=== PATIENT | male | born 1995 | race Caucasian/White ===

== ENCOUNTER 2016-11-01 03:16 | Emergency (ER) | payer OTHER ==
[2016-11-01 03:20] VITALS: BP 132/64
[2016-11-01] MEDS ORDERED: Ondansetron 4 MG/2 ML SDV IVPUSH ONE (03:31)
[2016-11-01] MEDS ORDERED: Sodium Chloride 0.9% 10 ML Syringe FLUSH PRN (03:32)
[2016-11-01] MEDS ORDERED: Sodium Chloride 0.9% 1,000 ML IV ONE (03:32)
--- NOTE | 2016-11-01 03:55 | EDM.PDOC ---
ED HPI GENERAL MEDICAL PROBLEM - General Chief Complaint: General Stated Complaint: N/V, [place] stools Time Seen by Provider: 11/01/16 03:46 Source of Information: Reports: Patient, Family History Limitations: Reports: No limitations - History of Present Illness INITIAL COMMENTS - FREE TEXT/NARRATIVE: Has 24 hours of watery diarrhea and N/V x 4, low grade fever, mild aches. No cough or other c/o. Poor intake. Onset: sudden Duration: Day(s): (1) Location: Reports: other (No dominant pain) Severity: mild Improves with: Reports: None Worsens with: Reports: None Associated Symptoms: Reports: chest pain (mild with deep breaths), fever/chills (subjective fevers. No significant chills), nausea/vomiting (times 4). Denies : cough, headaches, rash, shortness of breath Treatments KNOWLEDGE MANAGER: Reports: Other medication(s), Other (see below) (Pepto) Other Treatments KNOWLEDGE MANAGER: Pepto bismol Thoracic Pain Score (Numeric/FACES): 4 - Related Data Allergies Allergy/AdvReac Type Severity Reaction Status Date / Time No Known Allergies Allergy Verified 11/01/16 03:33 Home Meds: Home Meds Bismuth Subsalicylate [Pepto Bismol] 10 ml PO ASDIRECTED PRN 11/01/16 [History] ED ROS GENERAL - Review of Systems Review Of Systems: See Below Constitutional: Reports: fever, fatigue. Denies: chills, diaphoresis HEENT: Reports: No symptoms Respiratory: Reports: No Symptoms Cardiovascular: Reports: No symptoms Endocrine: Reports: no symptoms GI/Abdominal: Reports: Diarrhea (times 20), Decreased appetite, Nausea, Vomiting : Reports: other (only urinated twice in 24 hours) Musculoskeletal: Denies: other (genrealized aches (mild)) Skin: Reports: no symptoms Neurological: Reports: No Symptoms Psychiatric: Reports: No symptoms Hematologic/Lymphatic: Reports: no symptoms Immunologic: Reports: no symptoms ED EXAM, GENERAL - Physical Exam Exam: See Below Exam Limited By: No limitations General Appearance: alert, WD/WN, no apparent distress Eye Exam: bilateral eye: EOMI, PERRL Nose: normal inspection, normal mucosa, no blood Throat/Mouth: Normal inspection, Normal oropharynx, Normal voice, No airway compromise Head: atraumatic, normocephalic Neck: normal inspection, supple, non-tender, full range of motion Respiratory/Chest: no respiratory distress, lungs clear, normal breath sounds, no accessory muscle use Cardiovascular: regular rate, rhythm, no edema, no JVD, no murmur, tachycardia ( tachy at triage 110) GI/Abdominal: normal bowel sounds, soft, tender (mild generally upper abd). No : distended, guarding, rigid, rebound Back Exam: normal inspection, full range of motion. No: CVA tenderness (L), CVA tenderness (R) Extremities: normal inspection, normal range of motion, non-tender, no pedal edema, normal capillary refill (2 seconds) Neurological: alert, oriented, CN II-XII intact, normal cognition, no motor/ sensory deficits Psychiatric: normal affect, normal mood Skin Exam: Warm, Dry, Intact, Normal color, No rash. No: Diaphoretic Lymphatic: no adenopathy Course - Vital Signs Last Recorded V/S: Last Vital Signs Temp 37.8 C 11/01/16 03:17 Pulse 110 H 11/01/16 03:17 Resp 18 11/01/16 03:17 BP 132/64 11/01/16 03:17 Pulse Ox 97 11/01/16 03:17 - Orders/Labs/Meds Orders: Active Orders 24 hr Category Date Time Status Sodium Chloride 0.9% [Saline Flush] Med 11/01/16 03:32 Active 10 ml FLUSH ASDIRECTED PRN Saline Lock Insert [OM.PC] Routine Oth 11/01/16 03:32 Ordered Medication Orders Sodium Chloride (Saline Flush) 10 ml FLUSH ASDIRECTED PRN PRN Reason: Keep Vein Open Meds: Medications Generic Name Dose Route Start Last Admin Trade Name Freq PRN Reason Stop Dose Admin Sodium Chloride 10 ml 11/01/16 03:32 Saline Flush FLUSH ASDIRECTED PRN Keep Vein Open Discontinued Medications Generic Name Dose Route Start Last Admin Trade Name Freq PRN Reason Stop Dose Admin Sodium Chloride 1,000 mls @ 999 mls/hr 11/01/16 03:32 11/01/16 03:45 Normal Saline IV 11/01/16 04:32 999 mls/hr .BOLUS ONE Administration Loperamide HCl 4 mg 11/01/16 04:03 11/01/16 04:43 Imodium PO 11/01/16 04:04 Not Given ONETIME ONE Loperamide HCl 4 mg 11/01/16 04:34 11/01/16 04:36 Imodium Ad PO 11/01/16 04:35 4 mg ONETIME ONE Administration Morphine Sulfate 4 mg 11/01/16 04:25 11/01/16 04:33 Morphine IVPUSH 11/01/16 04:26 4 mg ONETIME ONE Administration Ondansetron HCl 4 mg 11/01/16 03:31 11/01/16 03:44 Zofran IVPUSH 11/01/16 03:32 4 mg ONETIME ONE Administration Pantoprazole Sodium 40 mg 11/01/16 04:03 11/01/16 04:32 Protonix PO 11/01/16 04:04 40 mg ONETIME ONE Administration - Re-Assessments/Exams Free Text/Narrative Re-Assessment/Exam: 11/01/16 04:44 Improved with fluids and medications Departure - Departure Time of Disposition: 04:44 Disposition: Home, Self-Care 01 Condition: good Clinical Impression: Gastroenteritis Forms: ED Department Discharge - Problem List Review Problem List Initiated/Reviewed/Updated: No - My Orders Last 24 Hours: My Active Orders 11/01/16 03:32 Sodium Chloride 0.9% [Saline Flush] 10 ml FLUSH ASDIRECTED PRN Saline Lock Insert [OM.PC] Routine - Assessment/Plan Last 24 Hours: My Active Orders 11/01/16 03:32 Sodium Chloride 0.9% [Saline Flush] 10 ml FLUSH ASDIRECTED PRN Saline Lock Insert [OM.PC] Routine Assessment:: Viral gastroenteritis Plan: 1. Zofran 2. Prilosec 3. Imodium 4. Fluids 5. Rest
[2016-11-01] MEDS ORDERED: Loperamide 1 MG/5 ML Soln 5 ML UD Cup PO ONE (04:03)
[2016-11-01] MEDS ORDERED: Pantoprazole 40 MG Tab.CR PO ONE (04:03)
[2016-11-01] MEDS ORDERED: Morphine 4 MG/ML Syringe IVPUSH ONE (04:25)
[2016-11-01] MEDS ORDERED: Loperamide 2 MG Tab PO ONE (04:34)
== END 2016-11-01 05:15 | disposition home or self-care (01) ==
LOC: LL.ED 03:16
DX: A08.4 Viral intestinal infection, unspecified (principal)
CPT/HCPCS: 96361; 96374; 96375; 99284; A9270; J2270; J2405; J7030